=== PATIENT | female | born 1945 | race Caucasian/White ===

== ENCOUNTER 2016-03-12 07:28 | Outpatient (CLI) | payer MEDICARE, OTHER | END 2016-03-12 07:29 | disposition home or self-care (01) | DX: R19.7 Diarrhea, unspecified (principal) ==

== ENCOUNTER 2016-03-17 05:00 | Outpatient (CLI) | payer MEDICARE, OTHER | END 2016-03-17 05:01 | disposition home or self-care (01) | DX: R19.7 Diarrhea, unspecified (principal); R30.0 Dysuria ==

== ENCOUNTER 2016-04-16 16:05 | Outpatient (CLI) | payer MEDICARE, OTHER | END 2016-04-16 16:06 | disposition home or self-care (01) | DX: G62.9 Polyneuropathy, unspecified (principal); R73.01 Impaired fasting glucose ==

== ENCOUNTER 2016-07-10 11:42 | Outpatient (CLI) | payer MEDICARE, OTHER | END 2016-07-10 11:43 | disposition home or self-care (01) | DX: Z12.31 Encounter for screening mammogram for malignant neoplasm of breast (principal); Z80.3 Family history of malignant neoplasm of breast ==

== ENCOUNTER 2017-07-14 09:56 | Outpatient (CLI) | payer MEDICARE, OTHER ==
--- NOTE | 2017-07-19 12:11 | Mammography Report ---
DIGITAL SCREENING MAMMOGRAM: 07/14/2017 CLINICAL INDICATION: A 71-year-old with family history of breast cancer, history of benign left breast biopsy, for screening. COMPARISON: 06/2016, 06/2015, 06/2014, 06/2013, 05/2012, 05/2011, 05/2010. TECHNIQUE: Routine CC and MLO projections were obtained of the breasts. FINDINGS: The breasts again demonstrate heterogeneously dense fibroglandular parenchyma bilaterally. Coarse and punctate, typically benign calcifications are present. No suspicious masses, clustered microcalcifications, or regions of architectural distortion are identified. IMPRESSION: BENIGN FINDINGS. RECOMMENDATION: Routine annual screening unless otherwise clinically indicated. BI-RADS CATEGORY 2 - BENIGN FINDINGS. STANDARD QUALIFYING STATEMENTS: 1. This examination was reviewed with the aid of Computer-Aided Detection (CAD). 2. A negative or benign imaging report should not delay biopsy if clinically suspicious findings are present. Consider surgical consultation if warranted. More than 5% of cancers are not identified by imaging. 3. Dense breasts may obscure an underlying neoplasm. TD: 07/19/2017 11:50
== END 2017-07-14 09:57 | disposition home or self-care (01) ==
LOC: DI.N 09:56
PROVIDERS: ATTEND Family Medicine
DX: Z12.31 Encounter for screening mammogram for malignant neoplasm of breast (principal); Z80.3 Family history of malignant neoplasm of breast
CPT/HCPCS: 77067

== ENCOUNTER 2018-02-28 08:29 | Outpatient (CLI) | payer MEDICARE, OTHER ==
[2018-02-28 15:06] LABS: ALBUMIN 4.4 g/dL (3.2-5.5); ALBUMIN/GLOBULIN RATIO 1.5 (1.0-2.2); ALKALINE PHOSPHATASE 51 IU/L (42-121); ALT ALANINE AMINOTRANSFERASE 25 IU/L (10-60); AST ASPARTATE AMINOTRANSFERASE 31 IU/L (10-42); BILIRUBIN,TOTAL 1.1 mg/dL (0.2-1.0); BUN - BLOOD UREA NITROGEN 23 mg/dL (6-20); CALCIUM 9.6 mg/dL (8.5-10.3); CARBON DIOXIDE - CO2 28 mmol/L (21-32); CHLORIDE 102 mmol/L (101-111); CHOL/HDL RATIO 2.7 (<4.4); CHOLESTEROL 217 mg/dL; CREATININE 0.7 mg/dL (0.4-1.0); GFR - MDRD 82 (>89); GLUCOSE 86 mg/dL (70-100); HDL CHOLESTEROL 79 mg/dL; LDL CHOLESTEROL,CALCULATED 127 mg/dL; LDL/HDL RATIO 1.6 (<4.4); SODIUM 138 mmol/L (135-145); TOTAL PROTEIN 7.3 g/dL (6.7-8.2); VLDL CHOLESTEROL 11 mg/dL
[2018-02-28 15:08] LABS: BASOPHILS # (AUTO) 0.1 10^3/uL (0.0-0.1); EOSINOPHILS # (AUTO) 0.2 10^3/uL (0.0-0.7); EOSINOPHILS % (AUTO) 3.1 %; HGB - HEMOGLOBIN 15.4 g/dL (12.0-16.0); LYMPHOCYTES # (AUTO) 1.7 10^3/uL (1.5-3.5); LYMPHOCYTES % (AUTO) 26.9 %; MEAN CORPUSCULAR HEMOGLOBIN 29.9 pg (27.0-31.0); MEAN CORPUSCULAR HGB CONC 33.5 g/dL (32.0-36.0); MEAN CORPUSCULAR VOLUME 89.2 fL (81.0-99.0); MEAN PLATELET VOLUME 9.6 fL (7.9-10.8); MONOCYTES # (AUTO) 0.6 10^3/uL (0.0-1.0); MONOCYTES % (AUTO) 9.3 %; NEUTROPHILS # (AUTO) 3.8 10^3/uL (1.5-6.6); NEUTROPHILS % (AUTO) 59.7 %; PLT - PLATELET COUNT 207 10^3/uL (130-450); RED BLOOD COUNT 5.15 10^6/uL (4.20-5.40); RED CELL DISTRIBUTION WIDTH 13.5 % (12.0-15.0); WHITE BLOOD COUNT 6.4 x10^3/uL (4.8-10.8)
[2018-02-28 15:10] LABS: HB2 TOTAL 16.5 g/dL; HEMOGLOBIN A1C 0.59 g/dL; HEMOGLOBIN A1C % 5.4 % (4.6-6.2)
== END 2018-02-28 23:59 | disposition home or self-care (01) ==
LOC: LAB.WCP 08:29
PROVIDERS: ATTEND Nurse Practitioner
DX: R73.01 Impaired fasting glucose (principal); Z79.899 Other long term (current) drug therapy
CPT/HCPCS: 36415; 80053; 80061; 82043; 83036; 83721; 84443; 85025

== ENCOUNTER 2018-03-10 08:10 | Outpatient (CLI) | payer MEDICARE, OTHER ==
--- NOTE | 2018-03-11 10:59 | DEXA Report ---
Reason: BONE DISORDER Procedure Date: 03/10/2018 Accession Number: [id number] / [id number] Procedure: DEX - Dexa Spine and/or Hip CPT Code: FULL RESULT: EXAM: Dexa Spine and/or Hip DATE: 03/10/2018 9:07 AM CLINICAL HISTORY: BONE DISORDER TECHNIQUE: Dual energy x-ray absorptiometry (DXA) was performed on a [employer] System. Regions measured are the AP Spine, femoral neck, and if needed forearm. COMPARISON: 08/22/2015. In accordance with the International Society for Clinical Densitometry (ISCD) guidelines, data from previous exams may be reanalyzed using current recommendations and techniques. This is done to allow a more accurate basis for comparison with the current study. FINDINGS: The data for the lumbar spine is as follows: BMD (g/cm/cm) T-SCORE Z-SCORE REGION L1 0.981 -1.2 0.2 L2 1.020 -1.5 -0.1 L3 1.111 -0.7 0.7 L4 1.151 -0.4 1.0 TOTAL 1.072 -0.9 0.5 NOTE: All evaluable vertebrae are used for classification The data for the hip is as follows: BMD (g/cm/cm) T-SCORE Z-SCORE REGION Neck 0.704 -2.4 -0.8 TOTAL 0.682 -2.6 -1.2 NOTE: The femoral neck or total proximal femur, whichever is lowest, is used for classification. DXA RESULTS SUMMARY: Spine SCAN DATE AGE BMD CHANGE VS CHANGE VS PREVIOUS PREVIOUS % 3/10/2018 [age] 1.072 0.005 0.5 08/22/2015 [age] 1.067 * Denotes significant change at the 95% confidence level. Denotes dissimilar scan types or analysis methods. DXA RESULTS SUMMARY: Hip SCAN DATE AGE BMD CHANGE VS CHANGE VS PREVIOUS PREVIOUS % [birth year]10/2018 [age] 0.682 0.009 1.3 08/22/2015 [age] 0.673 * Denotes significant change at the 95% confidence level. Denotes dissimilar scan types or analysis methods. IMPRESSION: THE WHO CLASSIFICATION BASED ON THE INTERNATIONAL REFERENCE STANDARD IS OSTEOPOROSIS. THE FRACTURE RISK IS HIGH. RECOMMENDATION: Patients with diagnosis of osteoporosis or osteopenia should have regular bone mineral density assessment. For those eligible for Medicare, routine testing is allowed once every 2 years. Testing frequency can be increased for patients who have rapidly progressing disease or for those who are receiving medical therapy to restore bone mass. COMMENT: World Health Organization (WHO) definitions for osteoporosis and osteopenia: NORMAL BMD: T-score at -1.0 or higher, fracture risk is low OSTEOPENIA BMD: T-score between -1.0 and -2.5, fracture risk is increased. OSTEOPOROSIS BMD: T-score at -2.5 or lower, fracture risk is high. National Osteoporosis Foundation recommends: 1. Obtain adequate dietary calcium (at least 1200 mg per day) and vitamin D (400-800 international units per day). 2. Participate, as appropriate, in regular weightbearing and muscle-strengthening exercise. 3. Avoid tobacco use and reduce alcohol and caffeine intake. 4. For more detailed information see the website at www.NOF.org.
== END 2018-03-10 08:11 | disposition home or self-care (01) ==
LOC: DI 08:10
PROVIDERS: ATTEND Family Medicine
DX: M81.0 Age-related osteoporosis without current pathological fracture (principal)
CPT/HCPCS: 77080

== ENCOUNTER 2018-05-09 11:01 | Outpatient (CLI) | payer MEDICARE, OTHER ==
--- NOTE | 2018-05-09 14:45 | XRAY Report ---
Reason: FOOT JOINT PAIN, RIGHT Procedure Date: 05/09/2018 Accession Number: [id number] / [id number] Procedure: WCP - Foot 2 View RT CPT Code: FULL RESULT: EXAM: RIGHT FOOT RADIOGRAPHY EXAM DATE: 05/09/2018 11:11 AM. CLINICAL HISTORY: Foot joint pain, right. COMPARISON: None. TECHNIQUE: 2 views. FINDINGS: Bones: Normal. No fractures or bone lesions. Joints: Normal. No subluxations. Soft Tissues: Normal. No soft tissue swelling. IMPRESSION: Normal foot radiography. RADIA
== END 2018-05-09 11:02 | disposition home or self-care (01) ==
LOC: DI.WCP 11:01
PROVIDERS: ATTEND Nurse Practitioner
DX: M79.671 Pain in right foot (principal)

== ENCOUNTER 2018-07-21 08:09 | Outpatient (CLI) | payer MEDICARE, OTHER ==
--- NOTE | 2018-07-21 09:44 | Mammography Report ---
Reason: SCREENING MAMMO Procedure Date: 07/21/2018 Accession Number: [id number] / [id number] Procedure: MGN - Screening Mammo Dig Bilat CPT Code: FULL RESULT: EXAM: Screening Mammo Dig Bilat DATE: 07/21/2018 8:41 AM CLINICAL HISTORY: Screening encounter. History of benign left breast biopsy in 2000 and family history of breast cancer in the mother at the age of 80. TECHNIQUE: (B) - Bilateral CC and MLO views were obtained. COMPARISON: 07/14/2017 through 07/16/2014. PARENCHYMAL PATTERN: (D) - The breast(s) demonstrate(s) heterogeneously dense fibroglandular parenchyma. FINDINGS: Postbiopsy changes in the left breast are stable. There are coarse typically benign calcifications. There are no suspicious masses, calcifications, or areas of distortion. IMPRESSION: Benign findings. BI-RADS category 2. RECOMMENDATION: (ANNUAL) - Recommend routine annual screening mammography. BI-RADS CATEGORY: (2) - Benign Findings. STANDARD QUALIFYING STATEMENTS: 1. This examination was not reviewed with the aid of Computer-Aided Detection (CAD). 2. A negative or benign imaging report should not preclude biopsy if clinically suspicious findings are present. 3. Dense breasts may obscure an underlying neoplasm. 4. This examination was reviewed without the aid of 3D breast imaging (tomosynthesis).
== END 2018-07-21 08:10 | disposition home or self-care (01) ==
LOC: DI.N 08:09
DX: Z12.31 Encounter for screening mammogram for malignant neoplasm of breast (principal); Z80.3 Family history of malignant neoplasm of breast
CPT/HCPCS: 77067

== ENCOUNTER 2019-11-28 08:00 | Outpatient (CLI) | payer MEDICARE, OTHER ==
[2019-11-28 13:12] LABS: BASOPHILS # (AUTO) 0.1 10^3/uL (0.0-0.1); BASOPHILS % (AUTO) 0.8 %; EOSINOPHILS # (AUTO) 0.3 10^3/uL (0.0-0.7); EOSINOPHILS % (AUTO) 4.9 %; HGB - HEMOGLOBIN 14.3 g/dL (12.0-16.0); LYMPHOCYTES # (AUTO) 1.4 10^3/uL (1.5-3.5); LYMPHOCYTES % (AUTO) 20.9 %; MEAN CORPUSCULAR HEMOGLOBIN 29.4 pg (27.0-31.0); MEAN CORPUSCULAR HGB CONC 31.4 g/dL (32.0-36.0); MEAN CORPUSCULAR VOLUME 93.8 fL (81.0-99.0); MEAN PLATELET VOLUME 10.4 fL (7.9-10.8); MONOCYTES # (AUTO) 0.5 10^3/uL (0.0-1.0); MONOCYTES % (AUTO) 7.2 %; NEUTROPHILS # (AUTO) 4.3 10^3/uL (1.5-6.6); NEUTROPHILS % (AUTO) 65.9 %; PLT - PLATELET COUNT 219 10^3/uL (130-450); RED BLOOD COUNT 4.86 10^6/uL (4.20-5.40); RED CELL DISTRIBUTION WIDTH 13.5 % (12.0-15.0); WHITE BLOOD COUNT 6.5 x10^3/uL (4.8-10.8)
[2019-11-28 13:46] LABS: ALBUMIN/GLOBULIN RATIO 1.2 (1.0-2.2); ALKALINE PHOSPHATASE 53 IU/L (42-121); ALT ALANINE AMINOTRANSFERASE 24 IU/L (10-60); AST ASPARTATE AMINOTRANSFERASE 28 IU/L (10-42); BILIRUBIN,TOTAL 1.3 mg/dL (0.2-1.0); BUN - BLOOD UREA NITROGEN 19 mg/dL (6-20); CALCIUM 9.7 mg/dL (8.5-10.3); CARBON DIOXIDE - CO2 28 mmol/L (21-32); CHLORIDE 103 mmol/L (101-111); CHOL/HDL RATIO 2.7 (<4.4); CHOLESTEROL 225 mg/dL; CREATININE 0.8 mg/dL (0.4-1.0); GLUCOSE 93 mg/dL (70-100); HDL CHOLESTEROL 84 mg/dL; LDL CHOLESTEROL,CALCULATED 127 mg/dL; LDL/HDL RATIO 1.5 (<4.4); SODIUM 139 mmol/L (135-145); TOTAL PROTEIN 7.3 g/dL (6.7-8.2); VLDL CHOLESTEROL 14 mg/dL
== END 2019-11-28 23:59 | disposition home or self-care (01) ==
LOC: LAB.WCP 08:00
PROVIDERS: ATTEND Family Medicine
DX: M89.9 Disorder of bone, unspecified (principal); J45.909 Unspecified asthma, uncomplicated; G62.9 Polyneuropathy, unspecified; F43.0 Acute stress reaction; Z79.899 Other long term (current) drug therapy
CPT/HCPCS: 36415; 80053; 80061; 83721; 84443; 85025

== ENCOUNTER 2019-11-28 12:53 | Outpatient (CLI) | payer MEDICARE, OTHER ==
--- NOTE | 2019-11-29 14:57 | Mammography Report ---
BILATERAL DIGITAL SCREENING MAMMOGRAM 3D/2D: 11/28/2019 CLINICAL: Family history of breast cancer. Routine screening. Comparison is made to exams dated: 07/21/2018 mammogram, 07/14/2017 mammogram, and 07/10/2016 mammogram - [facility]. The tissue of both breasts is extremely dense, which lowers the sen sitivity of mammography. No significant masses, calcifications, or other findings are seen in either breast. There has been no significant interval change. IMPRESSION: NEGATIVE There is no mammographic evidence of malignancy. A 1 year screening mammogram is recommended. This exam was interpreted at Station ID: [id number]. NOTE: For mammograms, a report in lay terms will be sent to the patient. Approximately 15% of breast malignancies will not be visualized mammographically. In the management of a palpable breast mass, a negative mammogram must not discourage biopsy of a clinically suspicious lesion. Electronically Signed By: Barney Jiang M.D. ar/penrad:11/28/2019 17:21:55 ACR BI-RADS Category 1: Negative 3341F PARENCHYMAL PATTERN: (VD) - The breast(s) demonstrate(s) extremely dense parenchyma, limiting the sen sitivity of mammography. BI-RADS CATEGORY: (1) - 1 RECOMMENDATION: (ANNUAL) - Recommend routine annual screening mammography. [id number] 1 year screening LATERALITY: (B)
== END 2019-11-28 12:54 | disposition home or self-care (01) ==
LOC: DI.N 12:53
DX: Z12.31 Encounter for screening mammogram for malignant neoplasm of breast (principal); Z80.3 Family history of malignant neoplasm of breast
CPT/HCPCS: 77063; 77067

== ENCOUNTER 2019-12-28 09:00 | Outpatient (CLI) | payer MEDICARE, OTHER | END 2019-12-28 23:59 | disposition home or self-care (01) | LOC: LAB.R 09:00 | PROVIDERS: ATTEND Physician Assistant Medical | DX: R30.0 Dysuria (principal) | CPT/HCPCS: 87086 ==

== ENCOUNTER 2020-05-10 08:00 | Outpatient (CLI) | payer MEDICARE, OTHER ==
[2020-05-10 13:23] LABS: BASOPHILS # (AUTO) 0.1 10^3/uL (0.0-0.1); BASOPHILS % (AUTO) 1.1 %; EOSINOPHILS # (AUTO) 0.2 10^3/uL (0.0-0.7); EOSINOPHILS % (AUTO) 4.9 %; HCT - HEMATOCRIT 45.3 % (37.0-47.0); LYMPHOCYTES # (AUTO) 0.8 10^3/uL (1.5-3.5); LYMPHOCYTES % (AUTO) 16.7 %; MEAN CORPUSCULAR HEMOGLOBIN 27.6 pg (27.0-31.0); MEAN CORPUSCULAR HGB CONC 30.9 g/dL (32.0-36.0); MEAN CORPUSCULAR VOLUME 89.2 fL (81.0-99.0); MEAN PLATELET VOLUME 10.9 fL (7.9-10.8); MONOCYTES # (AUTO) 0.6 10^3/uL (0.0-1.0); MONOCYTES % (AUTO) 11.6 %; NEUTROPHILS # (AUTO) 3.1 10^3/uL (1.5-6.6); NEUTROPHILS % (AUTO) 65.5 %; PLT - PLATELET COUNT 265 10^3/uL (130-450); RED BLOOD COUNT 5.08 10^6/uL (4.20-5.40); RED CELL DISTRIBUTION WIDTH 13.9 % (12.0-15.0); WHITE BLOOD COUNT 4.7 x10^3/uL (4.8-10.8)
[2020-05-10 14:01] LABS: ALBUMIN 4.2 g/dL (3.2-5.5); ALBUMIN/GLOBULIN RATIO 1.3 (1.0-2.2); ALKALINE PHOSPHATASE 61 IU/L (42-121); ALT ALANINE AMINOTRANSFERASE 25 IU/L (10-60); AST ASPARTATE AMINOTRANSFERASE 27 IU/L (10-42); BILIRUBIN,TOTAL 0.9 mg/dL (0.2-1.0); BUN - BLOOD UREA NITROGEN 25 mg/dL (6-20); CALCIUM 9.7 mg/dL (8.5-10.3); CARBON DIOXIDE - CO2 29 mmol/L (21-32); CHLORIDE 100 mmol/L (101-111); CHOL/HDL RATIO 2.5 (<4.4); CHOLESTEROL 199 mg/dL; CREATININE 0.9 mg/dL (0.4-1.0); GFR - MDRD 61 (>89); GLUCOSE 94 mg/dL (70-100); HDL CHOLESTEROL 79 mg/dL; POTASSIUM 4.4 mmol/L (3.5-5.0); SODIUM 137 mmol/L (135-145); TOTAL PROTEIN 7.5 g/dL (6.7-8.2); TRIGLYCERIDES 37 mg/dL
[2020-05-10 14:02] LABS: THYROID STIMULATING HORMONE 3.55 uIU/mL (0.34-5.60)
[2020-05-10 14:27] LABS: ESTIMATED AVERAGE GLUCOSE 100 mg/dL (70-100); HEMOGLOBIN A1c% 5.1 % (4.27-6.07)
== END 2020-05-10 08:01 | disposition home or self-care (01) ==
LOC: LAB.WCP 08:00
PROVIDERS: ATTEND Family Medicine
DX: M89.9 Disorder of bone, unspecified (principal); Z79.899 Other long term (current) drug therapy
CPT/HCPCS: 36415; 80053; 80061; 83036; 83721; 84443; 85025

== ENCOUNTER 2020-05-23 07:03 | Day surgery (SDC) | payer MEDICARE, OTHER ==
[2020-05-23] MEDS ORDERED: LACTATED RINGERS 1,000 ML IV ONE (07:26)
[2020-05-23] MEDS ORDERED: fentaNYL 250 MCG/5 ML VIAL ONE (08:44)
[2020-05-23] MEDS ORDERED: MIDAZOLAM 2 MG/2 ML VIAL ONE ×3 (08:44→09:01)
[2020-05-23] MEDS ORDERED: LACTATED RINGERS 800 ML IV ONE (09:02)
[2020-05-23 09:21] VITALS: BP 120/70
== END 2020-05-23 07:04 | disposition home or self-care (01) ==
LOC: SDS 07:03
PROVIDERS: ATTEND Surgery
DX: Z12.11 Encounter for screening for malignant neoplasm of colon (principal); K57.30 Diverticulosis of large intestine without perforation or abscess without bleeding; K64.8 Other hemorrhoids
CPT/HCPCS: G0121; J3010; J7120

== ENCOUNTER 2020-11-01 13:32 | Emergency (ER) | payer MEDICARE, OTHER ==
[2020-11-01 14:22] LABS: BASOPHILS # (AUTO) 0.1 10^3/uL (0.0-0.1); BASOPHILS % (AUTO) 0.9 %; EOSINOPHILS # (AUTO) 0.2 10^3/uL (0.0-0.7); EOSINOPHILS % (AUTO) 2.4 %; HCT - HEMATOCRIT 45.3 % (37.0-47.0); HGB - HEMOGLOBIN 14.9 g/dL (12.0-16.0); LYMPHOCYTES % (AUTO) 14.7 %; MEAN CORPUSCULAR HEMOGLOBIN 29.9 pg (27.0-31.0); MEAN CORPUSCULAR HGB CONC 32.9 g/dL (32.0-36.0); MEAN CORPUSCULAR VOLUME 90.8 fL (81.0-99.0); MEAN PLATELET VOLUME 9.4 fL (7.9-10.8); MONOCYTES # (AUTO) 0.7 10^3/uL (0.0-1.0); MONOCYTES % (AUTO) 10.8 %; NEUTROPHILS # (AUTO) 4.8 10^3/uL (1.5-6.6); NEUTROPHILS % (AUTO) 70.8 %; PLT - PLATELET COUNT 244 10^3/uL (130-450); RED BLOOD COUNT 4.99 10^6/uL (4.20-5.40); WHITE BLOOD COUNT 6.8 x10^3/uL (4.8-10.8)
--- NOTE | 2020-11-01 14:23 | ED Physician Documentation ---
PD HPI SYNCOPE - Stated complaint Stated Complaint: PASSED OUT, CP - Chief complaint Chief Complaint: Cardiac - History obtained from History obtained from: Patient - History of Present Illness Witnessed: Witnessed Timing - onset: Yesterday Duration: Seconds Preceding symptoms: Vision changes, Light headed, Generalized weakness Associated symptoms: Chest pain (today). 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 She reports that she has had syncope related to noxious stimulus previously. She feels like she was likely dehydrated as she does not drink much fluids chronically. Review of Systems Constitutional: denies: Fever Eyes: denies: Decreased vision Ears: denies: Ear pain Nose: denies: Rhinorrhea / runny nose, Congestion Throat: denies: Sore throat Cardiac: reports: Chest pain / pressure. denies: Palpitations, Pedal edema, Calf pain Respiratory: denies: Dyspnea, Cough, Wheezing GI: denies: Abdominal Pain, Nausea, Vomiting, Constipation, Diarrhea : denies: Dysuria, Frequency Skin: denies: Rash Musculoskeletal: denies: Neck pain, Back pain, Extremity pain Neurologic: reports: Syncope. denies: Generalized weakness, Focal weakness, Numbness, Altered mental status, Headache, Head injury PD PAST MEDICAL HISTORY - Past Medical History Cardiovascular: None Respiratory: None Endocrine/Autoimmune: None Psych: None Musculoskeletal: Osteoarthritis - Past Surgical History Past Surgical History: Yes Ortho: Knee replacement - Present Medications Home Medications: Ambulatory Orders Medication Instructions Recorded Confirmed Aspirin 325 mg ORAL DAILY 01/18/15 01/18/15 Benzonatate [Tessalon Perle] 100 mg PO BID #10 capsule 01/18/15 Calcitonin [Fortical] 1 spray NS DAILY 01/18/15 01/18/15 HYDROcod/ACETAM 5/325 [Vicodin 1 tab ORAL Q4H PRN 01/18/15 01/18/15 5/325] Ibuprofen [Motrin] 600 mg ORAL Q6H PRN 01/18/15 01/18/15 - Allergies Allergies/Adverse Reactions: Allergies Allergy/AdvReac Type Severity Reaction Status Date / Time No Known Drug Allergies Allergy Verified 11/01/20 14:04 - Social History Does the pt smoke?: No Smoking Status: Never smoker Does the pt drink ETOH?: Yes - Immunizations Immunizations are current?: Yes PD ED PE NORMAL - Vitals Vital signs reviewed: Yes (hypertensive mild ) - General General: Alert and oriented X 3, No acute distress, Well developed/nourished - HEENT HEENT: Atraumatic, PERRL, EOMI, Other (deep palpation of the scalp without area of tenderness. ) - Neck Neck: Supple, no meningeal sign, No bony TTP - Cardiac Cardiac: RRR, No murmur - Respiratory Respiratory: No respiratory distress, Clear bilaterally - Abdomen Abdomen: Soft, Non tender - Back Back: No CVA TTP, No spinal TTP - Derm Derm: Normal color, Warm and dry, No rash, Other (skin tents easily ) - Extremities Extremities: No deformity, No edema - Neuro Neuro: Alert and oriented X 3, supervisor inspection room 2-12 intact, No motor deficit, No sensory deficit, Normal speech Eye Opening: Spontaneous Motor: Obeys Commands Verbal: Oriented GCS Score: 15 - Psych Psych: Normal mood, Normal affect Results - Vitals Vitals: Vital Signs - 24 hr 11/01/20 11/01/20 11/01/20 13:56 14:03 16:03 Temperature 36.6 C 36.6 C Heart Rate 85 85 79 Respiratory 16 16 18 Rate Blood Pressure 162/76 H 162/76 H 149/77 H O2 Saturation 100 100 100 Oxygen O2 Source Room air - EKG (time done) 1420 Rate: Rate (enter#) (71) Rhythm: NSR [place]: LAD Compare to prior EKG: Unchanged from prior EKG (SPT 01-18-2015 no changes ) Computer interpretation: Agree with computer - Labs Labs: Laboratory Tests 11/01/20 11/01/20 11/01/20 14:15 14:15 14:15 WBC 6.8 RBC 4.99 Hgb 14.9 Hct 45.3 MCV 90.8 MCH 29.9 MCHC 32.9 RDW 14.0 Plt Count 244 MPV 9.4 Neut # (Auto) 4.8 Lymph # (Auto) 1.0 L Cooper # (Auto) 0.7 Eos # (Auto) 0.2 Baso # (Auto) 0.1 Absolute Nucleated RBC 0.00 Nucleated RBC % 0.0 Sodium 138 Potassium 4.1 Chloride 98 L Carbon Dioxide 28 Anion Gap 12.0 BUN 30 H Creatinine 1.0 Estimated GFR (MDRD) 54 L Glucose 116 H Calcium 10.2 Total Bilirubin 1.0 AST 37 ALT 29 Alkaline Phosphatase 66 Troponin I High Sens 4.2 Total Protein 8.0 Albumin 4.6 Globulin 3.4 Albumin/Globulin Ratio 1.4 Lipase 35 11/01/20 16:17 WBC RBC Hgb Hct MCV MCH MCHC RDW Plt Count MPV Neut # (Auto) Lymph # (Auto) Cooper # (Auto) Eos # (Auto) Baso # (Auto) Absolute Nucleated RBC Nucleated RBC % Sodium Potassium Chloride Carbon Dioxide Anion Gap BUN Creatinine Estimated GFR (MDRD) Glucose Calcium Total Bilirubin AST ALT Alkaline Phosphatase Troponin I High Sens 5.0 Total Protein Albumin Globulin Albumin/Globulin Ratio Lipase - Rads (name of study) chest Radiology: Prelim report reviewed (Impression: No acute pulmonary process.), EMP read indepedently, See rad report Procedures - IVC sono (time) 1415 Bedside IVC sono: IVC measures (cm) (1.34), IVC collapsed c insp (cm) (complete), Dehydration (mild but present with complete collapse) PD MEDICAL DECISION MAKING - ED course Complexity details: reviewed results, re-evaluated patient, considered differential, d/w patient ED course: patient with syncope yesterday presents today with chest pressure with non- ischemic EKG with negative trop. She is found to be mildly dehydrated on interrogation of the IVC and her chest pain is improved. She has had syncope with needles previously and she is hydrated orally. Departure - Departure Disposition: 01 Home, Self Care Clinical Impression: Dehydration, Syncope and collapse Condition: Stable Instructions: ED Dehydration, ED Syncope Vasovagal Follow-Up: Marion Ascencio DO [Primary Care Provider] -
--- NOTE | 2020-11-01 14:29 | XRAY Report ---
PROCEDURE: Chest 1 View X-Ray INDICATIONS: Chest pain TECHNIQUE: One view of the chest was acquired. COMPARISON: Chest x-ray 06/25/2016 FINDINGS: Surgical changes and devices: None. Lungs and pleura: No pleural effusions or pneumothorax. Lungs are clear. Mediastinum: Mediastinal contours appear normal. Heart size is prominent. Bones and chest wall: No suspicious bony lesions. Overlying soft tissues appear unremarkable. IMPRESSION: No acute pulmonary process. Reviewed by: Sylwia Garcia MD on 11/01/2020 2:28 PM PDT Approved by: Sylwia Garcia MD on 11/01/2020 2:28 PM PDT Station ID: [id number]
[2020-11-01 14:38] LABS: ALBUMIN 4.6 g/dL (3.2-5.5); ALBUMIN/GLOBULIN RATIO 1.4 (1.0-2.2); CALCIUM 10.2 mg/dL (8.5-10.3); POTASSIUM 4.1 mmol/L (3.5-5.0)
[2020-11-01 17:15] VITALS: BP 150/70
== END 2020-11-01 17:13 | disposition home or self-care (01) ==
LOC: ED 13:32
DX: E86.0 Dehydration (principal); R55 Syncope and collapse
CPT/HCPCS: 36415; 80053; 83690; 84484; 85025; 93005; 99283; 99284

== ENCOUNTER 2021-03-10 08:09 | Outpatient (CLI) | payer MEDICARE, OTHER ==
--- NOTE | 2021-03-10 09:51 | DEXA Report ---
PROCEDURE: Dexa Spine and/or Hip INDICATIONS: OSTEOPENIA, POST MENOPAUSAL TECHNIQUE: Dual energy x-ray absorptiometry (DXA) was performed on a [employer] System. Regions measur ed are the AP Spine, femoral neck, and if needed forearm. COMPARISON: 03/10/2018 FINDINGS: Lumbar Spine: Bone Mineral Density 1.041 g/cm/cm,T score -1.2, osteopenia, change from previous -2.9%, significa nt Left Hip: Bone Mineral Density 0.656 g/cm/cm,T score -2.8, osteoporosis, change from previous -3.8% Left Femoral Neck: Bone Mineral Density 0.661 g/cm/cm, T score -2.7, osteoporosis (T score greater or equal to -1.0: NORMAL) (T score from -1.1 to -2.4: OSTEOPENIA) (T score less than or equal to -2.5 to: OSTEOPOROSIS) Impression: 1. Osteoporosis puts the patient at a high-risk of fracture. 2. Statistically significant interval decrease in lumbar spine bone mineral density. Patients with diagnosis of osteoporosis or osteopenia should have regular bone mineral density assess ment. For those eligible for Medicare, routine testing is allowed once every 2 years. Testing frequ ency can be increased for patients who have rapidly progressing disease or for those who are receivin g medical therapy to restore bone mass. Reviewed by: Yulia Rodriguez MD on 03/10/2021 9:50 AM PST Approved by: Yulia Rodriguze MD on 03/10/2021 9:50 AM PST Station ID: [id number]
== END 2021-03-10 08:10 | disposition home or self-care (01) ==
LOC: DI 08:09
PROVIDERS: ATTEND Family Medicine
DX: M81.0 Age-related osteoporosis without current pathological fracture (principal); Z78.0 Asymptomatic menopausal state

== ENCOUNTER 2021-05-02 06:45 | Outpatient (CLI) | payer MEDICARE, OTHER ==
--- NOTE | 2021-05-02 16:52 | Ultrasound Report ---
PROCEDURE: Duplex Lwr Ext Arterial Bilat INDICATIONS: iNTERMITTENT CLAUDICATION TECHNIQUE: Color and pulse Doppler interrogation was performed of both lower extremity arterial systems, with im age documentation. COMPARISON: None FINDINGS: Right lower extremity: Common femoral artery: 157 cm/sec, with triphasic flow. Deep femoral artery: 103 cm/sec, with triphasic flow. Proximal superficial femoral artery: 113 cm/sec, with triphasic flow. Mid superficial femoral artery: 89 cm/sec, with biphasic flow. Distal superficial femoral artery: 57 cm/sec, with biphasic flow. Popliteal artery: 82 cm/sec, with biphasic flow. Posterior tibial artery: 77 cm/sec, with biphasic flow. Anterior tibial artery/dorsalis pedis: 71/57 cm/sec, with biphasic flow. Bocanegra-scale imaging description: Scattered diffuse atherosclerotic plaque. Left lower extremity: Common femoral artery: 162 cm/sec, with triphasic flow. Deep femoral artery: 66 cm/sec, with biphasic flow. Proximal superficial femoral artery: 108 cm/sec, with triphasic flow. Mid superficial femoral artery: 1 or 2 cm/sec, with triphasic flow. Distal superficial femoral artery: 77 cm/sec, with triphasic flow. Popliteal artery: 73 cm/sec, with biphasic flow. Posterior tibial artery: 86 cm/sec, with biphasic flow. Anterior tibial artery/dorsalis pedis: 60/25 cm/sec, with biphasic flow. Bocanegra-scale imaging description: Scattered diffuse atherosclerotic plaque. IMPRESSION: 1. No focal stenosis. 2. Diffuse atherosclerotic plaque in both lower extremities. Reviewed by: Evin Stevenson on 05/02/2021 4:51 PM PST Approved by: Evin Stevenson on 05/02/2021 4:51 PM PST Station ID: [id number]
== END 2021-05-02 06:46 | disposition home or self-care (01) ==
LOC: DI 06:45
PROVIDERS: ATTEND Family Medicine
DX: I70.203 Unspecified atherosclerosis of native arteries of extremities, bilateral legs (principal)
CPT/HCPCS: 93925

== ENCOUNTER 2021-10-01 15:30 | Outpatient (CLI) | payer MEDICARE, OTHER ==
--- NOTE | 2021-10-02 08:32 | Mammography Report ---
BILATERAL DIGITAL SCREENING MAMMOGRAM 3D/2D: 10/01/2021 CLINICAL: Family history of breast cancer. Routine screening. Comparison is made to exams dated: 11/28/2019 mammogram, 07/21/2018 mammogram, 07/14/2017 mammogram, 01/2017 mammogram, 07/18/2015 mammogram, and 07/16/2014 mammogram - [facility]. The tissue of both breasts is heterogeneously dense. This may lower the sensitivity of mammography. There are benign post operative findings in the left breast. No significant masses, calcifications, or other findings are seen in either breast. There has been no significant interval change. IMPRESSION: BENIGN There is no mammographic evidence of malignancy. A 1 year screening mammogram is recommended. Based on the Tyrer Cuzick model (a risk assessment model) the patients lifetime risk is 12.4% and he r 10 year risk is 12.4%. According to the ACR, ACS, and NCCN guidelines, an annual breast MRI exam al bernardino with mammogram is recommended if the patients lifetime risk is 20% or greater. This exam was interpreted at Station ID: [id number]. NOTE: For mammograms, a report in lay terms will be sent to the patient. Approximately 15% of breast malignancies will not be visualized mammographically. In the management of a palpable breast mass, a negative mammogram must not discourage biopsy of a clinically suspicious lesion. Electronically Signed By: Qasim Ritter M.D. atmagy/[email or web address]:10/02/2021 07:11:09 ACR BI-RADS Category 2: Benign Finding(s) 3342F PARENCHYMAL PATTERN: (D) - The breast(s) demonstrate(s) heterogeneously dense fibroglandular stevenson valdivia. BI-RADS CATEGORY: (2) - 2 RECOMMENDATION: (ANNUAL) - Recommend routine annual screening mammography. [id number] 1 year screening LATERALITY: (B)
== END 2021-10-01 15:31 | disposition home or self-care (01) ==
LOC: DI.N 15:30
DX: Z12.31 Encounter for screening mammogram for malignant neoplasm of breast (principal); Z80.3 Family history of malignant neoplasm of breast

== ENCOUNTER 2021-12-26 10:31 | Outpatient (CLI) | payer MEDICARE, OTHER ==
[2021-12-26 10:50] LABS: BASOPHILS # (AUTO) 0.1 10^3/uL (0.0-0.1); EOSINOPHILS # (AUTO) 0.1 10^3/uL (0.0-0.7); HGB - HEMOGLOBIN 14.5 g/dL (12.0-16.0); LYMPHOCYTES # (AUTO) 0.9 10^3/uL (1.5-3.5); LYMPHOCYTES % (AUTO) 15.2 %; MEAN CORPUSCULAR HEMOGLOBIN 28.9 pg (27.0-31.0); MEAN CORPUSCULAR HGB CONC 31.5 g/dL (32.0-36.0); MEAN CORPUSCULAR VOLUME 91.6 fL (81.0-99.0); MEAN PLATELET VOLUME 9.8 fL (7.9-10.8); MONOCYTES # (AUTO) 0.7 10^3/uL (0.0-1.0); MONOCYTES % (AUTO) 11.3 %; NEUTROPHILS # (AUTO) 4.2 10^3/uL (1.5-6.6); NEUTROPHILS % (AUTO) 71.2 %; PLT - PLATELET COUNT 228 10^3/uL (130-450); RED BLOOD COUNT 5.02 10^6/uL (4.20-5.40); RED CELL DISTRIBUTION WIDTH 14.2 % (12.0-15.0); WHITE BLOOD COUNT 5.9 x10^3/uL (4.8-10.8)
[2021-12-26 11:09] LABS: ALBUMIN 4.3 g/dL (3.2-5.5); ALBUMIN/GLOBULIN RATIO 1.4 (1.0-2.2); ALKALINE PHOSPHATASE 74 IU/L (42-121); ALT ALANINE AMINOTRANSFERASE 30 IU/L (10-60); AST ASPARTATE AMINOTRANSFERASE 32 IU/L (10-42); BILIRUBIN,TOTAL 1.1 mg/dL (0.2-1.0); BUN - BLOOD UREA NITROGEN 17 mg/dL (6-20); CALCIUM 10.1 mg/dL (8.5-10.3); CARBON DIOXIDE - CO2 28 mmol/L (21-32); CHLORIDE 102 mmol/L (101-111); CHOL/HDL RATIO 2.6 (<4.4); CHOLESTEROL 218 mg/dL; CREATININE 0.7 mg/dL (0.4-1.0); GFR - MDRD 81 (>89); GLUCOSE 99 mg/dL (70-100); HDL CHOLESTEROL 83 mg/dL; LDL CHOLESTEROL,CALCULATED 121 mg/dL; LDL/HDL RATIO 1.5 (<4.4); POTASSIUM 4.4 mmol/L (3.5-5.0); SODIUM 139 mmol/L (135-145); TOTAL PROTEIN 7.4 g/dL (6.7-8.2); TRIGLYCERIDES 69 mg/dL; VLDL CHOLESTEROL 14 mg/dL
[2021-12-26 11:18] LABS: THYROID STIMULATING HORMONE 2.29 uIU/mL (0.34-5.60)
== END 2021-12-26 10:32 | disposition home or self-care (01) ==
LOC: LAB 10:31
PROVIDERS: ATTEND Physician Assistant
DX: I10 Essential (primary) hypertension (principal); R14.0 Abdominal distension (gaseous); E83.52 Hypercalcemia; R63.4 Abnormal weight loss; R19.4 Change in bowel habit
CPT/HCPCS: 36415; 80053; 80061; 83721; 83970; 84443; 85025; 86304

== ENCOUNTER 2022-01-06 15:33 | Outpatient (CLI) | payer MEDICARE, OTHER ==
--- NOTE | 2022-01-06 17:33 | Ultrasound Report ---
PROCEDURE: Pelvic w/Transvaginal INDICATIONS: LLQ ABD PAIN TECHNIQUE: Real-time scanning was performed of the pelvic organs, with image documentation. Additional endovagi nal scanning was necessary due to incomplete visualization of the adnexal and endometrial structures by transabdominal scanning. COMPARISON: None. FINDINGS: Uterus: Uterus is anteverted and normal in size at 5.9 x 3 x 3.8 cm. The myometrium is heterogeneou s. 1.6 x 1.7 x 1.6 cm subserosal fibroid in anterior myometrium near midline is seen. The endometriu m measures 5.1 mm in combined thickness. No gross endometrial mass or fluid. Ovaries: Bilateral ovaries are not visualized. No adnexal masses are seen. Other: No pathologic free abdominal or pelvic fluid. IMPRESSION: Small uterine fibroid as above. No endometrial mass or fluid. Bilateral ovaries are not visualized. No gross abnormality is seen in bilateral adnexa. Reviewed by: Herbie Sal MD on 01/06/2022 5:31 PM PST Approved by: Herbie Sal MD on 01/06/2022 5:31 PM PST Station ID: [id number]
== END 2022-01-06 15:34 | disposition home or self-care (01) ==
LOC: DI 15:33
PROVIDERS: ATTEND Physician Assistant
DX: D25.2 Subserosal leiomyoma of uterus (principal)

== ENCOUNTER 2022-02-14 09:16 | Outpatient (CLI) | payer MEDICARE, OTHER ==
[2022-02-14] MEDS ORDERED: iohexoL-300 100 ML VIAL ONE (09:19)
[2022-02-14] MEDS ORDERED: DIATRIZOATE MEGLU/DIATRIZO SOD 30 ML BOTTLE PO ONE ×2 (09:40→10:08)
[2022-02-14 09:48] LABS: CREATININE 0.8 mg/dL (0.4-1.0)
[2022-02-14] MEDS ORDERED: iohexoL-300 100 ML VIAL IVP ONE (10:08)
--- NOTE | 2022-02-14 18:57 | CT Report ---
PROCEDURE: ABDOMEN/PELVIS W INDICATIONS: LLQ ABD PAIN CONTRAST: 100mL Omni 300 TECHNIQUE: After the administration of IV and oral contrast, 5 mm thick sections acquired from the diaphragms to the symphysis. 5 mm thick coronal and sagittal reformats were acquired. For radiation dose reducti on, the following was used: automated exposure control, adjustment of mA and/or kV according to tisha ent size. COMPARISON: None FINDINGS: Image quality: Good Lower chest: Scattered suspected scarring/atelectasis Solid organs: Liver is unremarkable. Gallbladder is unremarkable. No pathologic dilation of the bilia ry tree or pancreatic duct. No splenomegaly. No adrenal nodules. Mild bilateral pelviectasis without ureteral dilation. No obstructing calculus is identified. Vessels and lymph nodes: No abdominal aortic aneurysm. No pathologic adenopathy by size criteria. Bowel and peritoneum: Duodenal diverticulum distally. No acute obstruction. No pathologic ascites. Body wall: Tiny fat-containing umbilical hernia. Pelvis: Bladder is underdistended. Reproductive organs not well evaluated on CT, overall unremarkable . Bones: Spondylosis without acute or suspicious osseous finding. IMPRESSION: No acute abdominopelvic pathology. Additional incidental/favored chronic findings as above. Reviewed by: Bud Prince MD on 02/14/2022 5:56 PM [facility] Approved by: Bud Prince MD on 02/14/2022 5:56 PM [facility] Station ID: [id number]
== END 2022-02-14 09:17 | disposition home or self-care (01) ==
LOC: LAB 09:16
PROVIDERS: ATTEND Physician Assistant
DX: R10.12 Left upper quadrant pain (principal)
CPT/HCPCS: 36415; 74177; 82565; Q9963; Q9967

== ENCOUNTER 2022-02-21 14:08 | Emergency (ER) | payer MEDICARE, OTHER ==
[2022-02-21] MEDS ORDERED: iohexoL-300 100 ML VIAL ONE (17:16)
[2022-02-21 17:40] LABS: ALBUMIN 4.1 g/dL (3.2-5.5); ALBUMIN/GLOBULIN RATIO 1.3 (1.0-2.2); BILIRUBIN,TOTAL 0.7 mg/dL (0.2-1.0); CALCIUM 9.5 mg/dL (8.5-10.3); CREATININE 0.8 mg/dL (0.4-1.0); POTASSIUM 4.2 mmol/L (3.5-5.0); TOTAL PROTEIN 7.2 g/dL (6.7-8.2)
[2022-02-21] MEDS ORDERED: HYDROmorphone 0.5 MG/0.5 ML SYRINGE IVP STA (18:04)
[2022-02-21] MEDS ORDERED: iohexoL-300 100 ML VIAL IVP ONE (18:50)
--- NOTE | 2022-02-21 19:04 | CT Report ---
PROCEDURE: ANGIO HEAD W/WO INDICATIONS: abrupt right temporal/ear area pain today CONTRAST: 80ml omni 300 TECHNIQUE: Precontrast 4.5 mm thick angled axial sections acquired from the foramen magnum to the vertex. Afte r the administration of intravenous contrast, 1 mm thick sections acquired through the [place] of [place] is. Postcontrast 4.5 mm thick sections then re-acquired from the foramen magnum to the vertex. 3-di mensional [id number]-[id number] (MIP) and/or volume rendering reformats were acquired of the c entral intracranial vasculature. For radiation dose reduction, the following was used: automated ex posure control, adjustment of mA and/or kV according to patient size. COMPARISON: None. FINDINGS: Image quality: Excellent. Anterior circulation: Intracranial internal carotid arteries are normal in size and flow. The flow within the paired anterior cerebral arteries is normal and symmetric. The flow within the middle cer ebral arteries is normal and symmetric. The anterior communicating artery is seen. No aneurysms are seen. Posterior circulation: Visualized portions of the vertebral arteries demonstrate normal caliber, and join to form a normal appearing basilar artery. A right posterior communicating artery is noted. Fl ow within the posterior cerebral arteries is normal and symmetric. No aneurysms are seen. CSF spaces: Lateral ventricles are prominent size. The degree of ventricular prominence is more than the cortical sulci prominence. Basal cisterns are patent. No extra-axial fluid collections. Brain: No midline shift. No intracranial bleeds or masses. Bocanegra-white matter interface appears int act. Skull and face: Calvarium and facial bones appear intact, without suspicious lesions. Nodule at the right parietal scalp measuring 1.2 cm. Circumscribed and partially calcified. This has a benign appea glen. Sinuses: Visualized sinuses and mastoids are clear. IMPRESSION: 1. No acute intracranial hemorrhage. 2. Prominent lateral ventricles. The degree of ventricular prominence is more than the cortical sulci prominence. Hydrocephalus is difficult to exclude. 3. No large vessel occlusion. Reviewed by: Trae Holland MD on 02/21/2022 7:03 PM [facility] Approved by: Trae Holland MD on 02/21/2022 7:03 PM PST Station ID: [id number]
--- NOTE | 2022-02-21 19:26 | ED Physician Documentation ---
PD HPI HEENT - Stated complaint Stated Complaint: R EAR PX - Chief complaint Chief Complaint: General - History obtained from History obtained from: Patient, Family - History of Present Illness Timing - onset: How many hours ago (2), Today Timing - duration: Hours (the pain has decreased from the peak of intensity but still hurting, more with jaw movement and palpation at TMJ. Some with palpation religious area.) Timing - details: Abrupt onset (She was playing cards with friends and had an abrupt onset of right jaw to temporal area pain that she described as sharp and severe. It started abruptly without any obvious instigation. No visual change. Pain with jaw movement. No other symptoms.) Location: Right ear (pain at right ear/TMJ/temporal area sharp and intense.) Worsens: No: Swalllowing, Noise Associated symptoms: No: Fever, Congestion, Swollen nodes, Facial swelling Similar symptoms before: Has not had sx before Recently seen: Not recently seen Review of Systems Constitutional: denies: Fever, Chills Eyes: denies: Loss of vision, Decreased vision Ears: denies: Loss of hearing, Tinnitus/ringing Throat: denies: Oral lesions / sores, Sore throat Skin: denies: Rash, Lesions Neurologic: denies: Focal weakness, Numbness, Altered mental status PD PAST MEDICAL HISTORY - Past Medical History Cardiovascular: None Respiratory: None Endocrine/Autoimmune: None Psych: None Musculoskeletal: Osteoarthritis - Past Surgical History Past Surgical History: Yes Ortho: Knee replacement - Present Medications Home Medications: Ambulatory Orders Medication Instructions Recorded Confirmed Aspirin 325 mg ORAL DAILY 01/18/15 01/18/15 Benzonatate [Tessalon Perle] 100 mg PO BID #10 capsule 01/18/15 Calcitonin [Fortical] 1 spray NS DAILY 01/18/15 01/18/15 HYDROcod/ACETAM 5/325 [Vicodin 1 tab ORAL Q4H PRN 01/18/15 01/18/15 5/325] Ibuprofen [Motrin] 600 mg ORAL Q6H PRN 01/18/15 01/18/15 Amoxicillin 2 tab PO TID #60 cap 10/06/21 Acetaminophen/Cod 300/30 [Tylenol 1 - 2 each PO Q4-6H PRN #20 tablet 10/09/21 #3] Albuterol Sulf [Ventolin Hfa 1 - 2 puffs INH Q4HR PRN #1 gm 10/09/21 Inhaler] Benzonatate [Tessalon] 200 mg PO QID PRN #20 cap 10/09/21 - Allergies Allergies/Adverse Reactions: Allergies Allergy/AdvReac Type Severity Reaction Status Date / Time strontium Allergy Hives Verified 10/09/21 13:11 - Social History Does the pt smoke?: No Smoking Status: Never smoker Does the pt drink ETOH?: Yes - Immunizations Immunizations are current?: Yes PD ED PE NORMAL - Vitals Vital signs reviewed: Yes - General General: Alert and oriented X 3, Well developed/nourished, Other (appears moderately uncomfortable. Holding hand to right side of face/ear. ) - HEENT HEENT: PERRL, EOMI, Ears normal, Moist mucous membranes, Pharynx benign, Dentition benign, Other (tenderness at TMJ area. Some increased pain with jaw impaction, but not improved with distraction. ) - Neck Neck: Supple, no meningeal sign, No adenopathy - Cardiac Cardiac: RRR, No murmur - Respiratory Respiratory: No respiratory distress, Clear bilaterally - Derm Derm: Normal color, Warm and dry, No rash - Neuro Neuro: Alert and oriented X 3, technical inspector 2-12 intact, No motor deficit, No sensory deficit, Normal speech Results - Vitals Vitals: Vital Signs - 24 hr 02/21/22 02/21/22 14:16 19:39 Temperature 37.2 C Heart Rate 75 83 Respiratory 18 18 Rate Blood Pressure 157/76 H 147/88 H O2 Saturation 99 97 Oxygen O2 Source Room air - Labs Labs: Laboratory Tests 02/21/22 02/21/22 17:22 17:22 ESR 4 Sodium 138 Potassium 4.2 Chloride 103 Carbon Dioxide 28 Anion Gap 7.0 BUN 29 H Creatinine 0.8 Estimated GFR (MDRD) 70 L Glucose 97 Calcium 9.5 Total Bilirubin 0.7 AST 29 ALT 30 Alkaline Phosphatase 71 Total Protein 7.2 Albumin 4.1 Globulin 3.1 Albumin/Globulin Ratio 1.3 Lipase 42 - Rads (name of study) head angio Radiology: Prelim report reviewed (no acute process. Age related changes, and pr ominent ventricles (correlate clinically).), See rad report PD Medical Decision Making - ED course Complexity details: reviewed results (no acute process seen on CT/angio. enlarged ventricles would not fit current symptoms. She has not had headaches/dizzy/vision changes, etc ongoing. ), re-evaluated patient, considered differential (Abrupt sharp pain through the right side of the face into the religious area with some tenderness in the TMJ. This would be unusual to cause this severe pain that quickly. Consideration of more severe causes would be vascular such as carotid dissection or inflammatory such as vasculitis, bleeding too), d/w patient, d/w family (son) Departure - Departure Disposition: 01 Home, Self Care Clinical Impression: Right sided facial pain TMJ arthralgia Qualifiers: Laterality: right Qualified Code(s): M26.621 - Arthralgia of right temporomandibular joint Condition: Stable Record reviewed to determine appropriate education?: Yes Instructions: ED TMJ Syndrome Follow-Up: Alisson Still PA [Primary Care Provider] - Comments: Your CT scan as well as blood tests including a chemistry panel and ESR to look for inflammatory causes such as vasculitis are all normal without any obvious cause for your pain. This excludes some of the more severe causes that could account for the pain onset and severity that you had. Still under consideration would be some inflammatory cause of the joint's such as TMJ inflammation, or potential nerve irritation (trigeminal neuralgia). Also be on watch out for other symptoms to develop such as skin rash fevers etc. that may blossom as a different diagnosis. For now we will consider TMJ inflammation and have you have soft food over the next several days to week. Anti- inflammatory such as ibuprofen 3 times daily for the next several days to week with food. Add Tylenol if needed for pains. Follow-up with your primary care if not fully resolved over the next 4 to 6 days and return if worse or other symptoms. Discharge Date/Time: 02/21/22 19:39
[2022-02-21 19:40] VITALS: BP 147/88
== END 2022-02-21 19:39 | disposition home or self-care (01) ==
LOC: ED 14:08
DX: R51.9 Headache, unspecified (principal); M26.621 Arthralgia of right temporomandibular joint
CPT/HCPCS: 36415; 70496; 80053; 83690; 85651; 99282; 99284; Q9967

== ENCOUNTER 2022-03-17 10:36 | Outpatient (CLI) | payer MEDICARE, OTHER ==
[2022-03-17 11:46] LABS: H. PYLORIS ANTIGEN STL NEGATIVE (Negative)
== END 2022-03-17 10:37 | disposition home or self-care (01) ==
LOC: LAB.R 10:36
PROVIDERS: ATTEND Physician Assistant
DX: R10.12 Left upper quadrant pain (principal)
CPT/HCPCS: 87338

== ENCOUNTER 2022-05-15 11:35 | Outpatient (CLI) | payer MEDICARE, OTHER ==
--- NOTE | 2022-05-15 16:56 | Ultrasound Report ---
PROCEDURE: Duplex Lwr Ext Arterial Bilat INDICATIONS: INTERMITTENT CLAUDICATION, COLD FEET TECHNIQUE: Color and pulse Doppler interrogation was performed of both lower extremity arterial systems, with im age documentation. COMPARISON: None FINDINGS: Right lower extremity: Common femoral artery: 96 cm/sec, with triphasic flow. Deep femoral artery: 119 cm/sec, with triphasic flow. Proximal superficial femoral artery: 101 cm/sec, with triphasic flow. Mid superficial femoral artery: 103 cm/sec, with triphasic flow. Distal superficial femoral artery: 102 cm/sec, with triphasic flow. Popliteal artery: 80 cm/sec, with triphasic flow. Posterior tibial artery: 86 cm/sec, with triphasic flow. Anterior tibial artery/dorsalis pedis: 62 cm/sec, with triphasic flow. Bocanegra-scale imaging description: Mild diffuse plaque Left lower extremity: Common femoral artery: 128 cm/sec, with triphasic flow. Deep femoral artery: 94 cm/sec, with triphasic flow. Proximal superficial femoral artery: 122 cm/sec, with triphasic flow. Mid superficial femoral artery: 101 cm/sec, with triphasic flow. Distal superficial femoral artery: 71 cm/sec, with triphasic flow. Popliteal artery: 46 cm/sec, with triphasic flow. Posterior tibial artery: 91 cm/sec, with triphasic flow. Anterior tibial artery/dorsalis pedis: 63 cm/sec, with triphasic flow. Bocanegra-scale imaging description: Mild diffuse plaque IMPRESSION: No evidence of arterial insufficiency to the bilateral lower extremities. Reviewed by: Jennifer Rios MD on 05/15/2022 4:55 PM PDT Approved by: Jennifer Rios MD on 05/15/2022 4:55 PM PDT Station ID: [id number]
== END 2022-05-15 11:36 | disposition home or self-care (01) ==
LOC: DI 11:35
PROVIDERS: ATTEND Physician Assistant
DX: I73.9 Peripheral vascular disease, unspecified (principal); R68.89 Other general symptoms and signs
CPT/HCPCS: 93925

== ENCOUNTER 2022-10-13 08:14 | Outpatient (CLI) | payer MEDICARE, OTHER ==
--- NOTE | 2022-10-14 09:52 | Mammography Report ---
BILATERAL DIGITAL SCREENING MAMMOGRAM 3D/2D: 10/13/2022 CLINICAL: Family history of breast cancer. Routine screening. Comparison is made to exams dated: 10/01/2021 mammogram, 11/28/2019 mammogram, 07/21/2018 mammogram, 06/29 mammogram, 07/10/2016 mammogram, and 07/18/2015 mammogram - [facility]. Both breasts are extremely dense, which lowers the sensitivity of mammography (category d />75% gland ular tissue). There are benign post operative findings in the left breast. No significant masses, calcifications, or other findings are seen in either breast. There has been no significant interval change. IMPRESSION: BENIGN There is no mammographic evidence of malignancy. A 1 year screening mammogram is recommended. Based on the Tyrer Cuzick model (a risk assessment model) the patients lifetime risk is 15.4% and he r 10 year risk is 0.0%. According to the ACR, ACS, and NCCN guidelines, an annual breast MRI exam letty ng with mammogram is recommended if the patients lifetime risk is 20% or greater. This exam was interpreted at Station ID: [id number]. NOTE: For mammograms, a report in lay terms will be sent to the patient. Approximately 15% of breast malignancies will not be visualized mammographically. In the management of a palpable breast mass, a negative mammogram must not discourage biopsy of a clinically suspicious lesion. Electronically Signed By: Yulia ellis/tisha:10/13/2022 15:28:52 letter sent: No_Letter ACR BI-RADS Category 2: Benign Finding(s) 3342F PARENCHYMAL PATTERN: (VD) - The breast(s) demonstrate(s) extremely dense parenchyma, limiting the sen sitivity of mammography. BI-RADS CATEGORY: (2) - 2 Mammogram [id number] 1 year screening LATERALITY: (B)
== END 2022-10-13 08:15 | disposition home or self-care (01) ==
LOC: DI.N 08:14
DX: Z12.31 Encounter for screening mammogram for malignant neoplasm of breast (principal); Z80.3 Family history of malignant neoplasm of breast

== ENCOUNTER 2023-10-20 08:43 | Outpatient (CLI) | payer MEDICARE, OTHER ==
--- NOTE | 2023-10-22 15:35 | Mammography Report ---
BILATERAL DIGITAL SCREENING MAMMOGRAM 3D/2D: 10/20/2023 CLINICAL: Routine screening. Family history of breast cancer. Comparison is made to exams dated: 10/13/2022 mammogram, 10/01/2021 mammogram, 11/28/2019 mammogram, 06/30 mammogram, 07/14/2017 mammogram, and 07/10/2016 mammogram - [facility]. Both breasts are extremely dense, which lowers the sensitivity of mammography (category d />75% gland ular tissue). There is a focal asymmetry in the right breast at 4 o'clock middle depth. No other significant masses, calcifications, or other findings are seen in either breast. IMPRESSION: INCOMPLETE: NEEDS ADDITIONAL IMAGING EVALUATION The focal asymmetry in the right breast is indeterminate. A diagnostic mammogram and ultrasound is r ecommended. Based on the Tyrer Cuzick model (a risk assessment model) the patient's lifetime risk is 13.8% and he r 10 year risk is 0.0%. According to the ACR, ACS, and NCCN guidelines, an annual breast MRI exam letty ng with mammogram is recommended if the patient's lifetime risk is 20% or greater. This exam was interpreted at Station ID: [id number]. NOTE: For mammograms, a report in lay terms will be sent to the patient. Approximately 15% of breast malignancies will not be visualized mammographically. In the management of a palpable breast mass, a negative mammogram must not discourage biopsy of a clinically suspicious lesion. Electronically Signed By: Yvette Rodriguez M.D., Ph.D. eb/:10/21/2023 17:04:36 ACR BI-RADS Category 0: Incomplete 3340F PARENCHYMAL PATTERN: (VD) - The breast(s) demonstrate(s) extremely dense parenchyma, limiting the sen sitivity of mammography. BI-RADS CATEGORY: (0) - 0 Mammo and [place] [id number] Immediate follow-up LATERALITY: (B)
== END 2023-10-20 08:44 | disposition home or self-care (01) ==
LOC: DI.N 08:43
DX: Z12.31 Encounter for screening mammogram for malignant neoplasm of breast (principal); R92.343 Mammographic extreme density, bilateral breasts; R92.8 Other abnormal and inconclusive findings on diagnostic imaging of breast; Z80.3 Family history of malignant neoplasm of breast

== ENCOUNTER 2023-11-11 07:43 | Outpatient (CLI) | payer MEDICARE, OTHER ==
--- NOTE | 2023-11-11 14:33 | Mammography Report ---
UNILATERAL RIGHT DIGITAL DIAGNOSTIC MAMMOGRAM 3D/2D WITH SPOT COMPRESSION: 11/11/2023 CLINICAL: Patient returns today to evaluate a focal asymmetry in the right breast. Comparison is made to exams dated: 10/20/2023 mammogram, 10/13/2022 mammogram, 10/01/2021 mammogram, 10/31 mammogram, 07/21/2018 mammogram, and 07/14/2017 mammogram - [facility]. The breasts are extremely dense, which lowers the sensitivity of mammography (category d />75% glandu lar tissue). There is a 0.4 cm oval focal asymmetry in the right breast at 3 o'clock middle depth. This is seen i n additional views. No other significant masses or calcifications are seen in the breast. IMPRESSION: INCOMPLETE: NEED ADDITIONAL IMAGING EVALUATION The 0.4 cm oval focal asymmetry in the right breast resembles a cyst or a lymph node and is indetermi melvina. An ultrasound is recommended for further evaluation and is scheduled to immediately follow th is examination. Based on the Tyrer Cuzick model (a risk assessment model) the patient's lifetime risk is 13.8% and he r 10 year risk is 0.0%. According to the ACR, ACS, and NCCN guidelines, an annual breast MRI exam letty ng with mammogram is recommended if the patient's lifetime risk is 20% or greater. This exam was interpreted at Station ID: [id number]. NOTE: For mammograms, a report in lay terms will be sent to the patient. Approximately 15% of breast malignancies will not be visualized mammographically. In the management of a palpable breast mass, a negative mammogram must not discourage biopsy of a clinically suspicious lesion. Electronically Signed By: Qasim Ritter M.D. aty/:11/11/2023 08:22:23 ACR BI-RADS Category 0: Incomplete: Need Additional Imaging Evaluation 3340F PARENCHYMAL PATTERN: (VD) - The breast(s) demonstrate(s) extremely dense parenchyma, limiting the sen sitivity of mammography. BI-RADS CATEGORY: (0) - 0 Ultrasound [id number] Immediate follow-up LATERALITY: (R)
--- NOTE | 2023-11-11 14:34 | Ultrasound Report ---
LIMITED ULTRASOUND OF RIGHT BREAST: 11/11/2023 CLINICAL: Patient returns today to evaluate a focal asymmetry in the right breast. Comparison is made to exams dated: 11/11/2023 mammogram, 10/20/2023 mammogram, 10/13/2022 mammogram, 10/01/2021 mammogram, 11/28/2019 mammogram, and 07/21/2018 mammogram - [facility]. Real-time ultrasound of the right breast 3-4 o'clock region was performed. Bocanegra scale images of the real-time examination were reviewed. No significant abnormalities were seen sonographically in the right breast. IMPRESSION: PROBABLY BENIGN There is no abnormality seen in the right breast to correspond with the mammography finding of small 4mm oval asymmetry which on retrospective review of previous mammograms may have been present but sma ller in size. This is likely a cyst and is probably benign. A follow-up right mammogram with possible ultrasound in 6 months is recommended to demonstrate stabil ity. Findings and recommendations were conveyed to the patient during today's evaluation. This exam was interpreted at Station ID: [id number]. Electronically Signed By: Qasim Ritter M.D. aty/:11/11/2023 08:59:31 ACR BI-RADS Category 3: Probably Benign 3343F BI-RADS CATEGORY: (3) - 3 Mammo and [place] [id number] 6 month follow-up LATERALITY: (R)
== END 2023-11-11 07:44 | disposition home or self-care (01) ==
LOC: DI 07:43
PROVIDERS: ATTEND Physician Assistant
DX: R92.8 Other abnormal and inconclusive findings on diagnostic imaging of breast (principal)